=== PATIENT | male | born 1955 | race Caucasian/White ===

== ENCOUNTER 2019-02-10 23:00 | Emergency (ER) | payer OTHER ==
[~2019-02-10] VITALS: Ht 177.8 cm; Wt 122.5 kg
[2019-02-10 23:10] VITALS: BP 160/85
--- NOTE | 2019-02-10 23:10 | NUR ---
PT BIBFAMILY FOR DYSURIA SINCE LAST NIGHT. PT AOX4. PT AMBULATORY. PT ABLE TO PROVIDE URINE SAMPLE. PT ON MONITOR IN BED 4 WITH FAMILY AT BEDSIDE. WILL CONTINUE TO MONITOR.
[2019-02-10 23:42] LABS: APPEARANCE,URINE Slightly Cloudy (CLEAR); BILIRUBIN,URINE SMALL (NEGATIVE); BLOOD, URINE Large Ery/uL (NEGATIVE); COLOR,URINE Yellow (YELLOW); KETONES,URINE Negative (NEGATIVE); LEUKOCYTE ESTERASE ,URINE Trace (NEGATIVE); NITRITE, URINE Positive (NEGATIVE); PH,URINE 6.5 (5.0-8.0); PROTEIN,URINE >=300 mg/dl (NEGATIVE); UGLUCOSE Negative (NEGATIVE); UROBILINOGEN,URINE 0.2 EU/dL (0.2)
--- NOTE | 2019-02-10 23:55 | NUR ---
RADIOLOGY AT BEDSIDE FOR XRAY
[2019-02-11 00:08] LABS: BACTERIA,URINE Few /HPF (None Seen); SQUAMOUS EPITHELIAL CELL,UR Rare /HPF (None Seen); WBC,URINE TOO NUMEROUS TO COUN /HPF (0-3)
[2019-02-11] MEDS ORDERED: CEFTRIAXONE 1 G VIAL ONE (00:29)
[2019-02-11] MEDS ORDERED: CEFTRIAXONE 1 G VIAL IM ONE (00:30)
[2019-02-11] MEDS ORDERED: LIDOCAINE 1% INJ 50 ML MDV IJ ONE (00:30)
--- NOTE | 2019-02-11 01:06 | NUR ---
Patient discharged to home in stable condition. Written and verbal after care instructions given. Patient verbalizes understanding of instruction.
== END 2019-02-11 01:08 | disposition home or self-care (01) ==
LOC: ER 23:06
DX: N39.0 Urinary tract infection, site not specified (principal); I10 Essential (primary) hypertension
CPT/HCPCS: 51702; 74018; 81001; 87086; 96372; 99284; J0696; J3490; 81000-TC; 87186-TC